=== PATIENT | female | born 1950 ===

== ENCOUNTER 2017-07-09 07:43 | Day surgery (SDC) | payer MEDICAID ==
[2017-07-09] MEDS ORDERED: Lactated Ringer's 500 ML IV ONE (08:17)
[2017-07-09 08:23] VITALS: BMI 22.8
[2017-07-09] MEDS ORDERED: Propofol 10 mg/ml Inj (20 ML) ONE (09:49)
[2017-07-09 10:19] VITALS: TEMP 96.8
[2017-07-09 10:28] VITALS: BP 117/70; PULSE 60; RESP 16; O2SAT 99
== END 2017-07-09 10:27 | disposition home or self-care (01) ==
LOC: H.ENDO 07:43
PROVIDERS: ATTEND Internal Medicine Gastroenterology
DX: K29.50 Unspecified chronic gastritis without bleeding (principal); K44.9 Diaphragmatic hernia without obstruction or gangrene; R10.13 Epigastric pain
CPT/HCPCS: 43239; 88305; J2704; J7120